=== PATIENT | male | born 1965 | race Caucasian/White ===

== ENCOUNTER 2017-05-14 14:23 | Inpatient (IN) | payer OTHER ==
[~2017-05-14] VITALS: Ht 172.7 cm; Wt 71.2 kg
--- NOTE | ~2017-05-14 | EKG ---
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 : 1965 Requested By: Matilde Dempsey Order Number: [id number] MD: Jerrod Altamirano Measurements Intervals [place] Rate: 84 P: 49 [place]: 144 QRS: 8 QRSD: 100 T: 62 QT: 391 QTc: 463 Interpretive Statements Sinus rhythm No significant abnormality Compared to ECG 09/02/2010 09:24:39 Myocardial infarct finding no longer present Electronically Signed On 05-15-2017 8:40:46 AUTO MACHINIST by Jerrod Altamirano [email or web address] <ELECTRONICALLY SIGNED> By: Jerrod Altamirano MD, [facility] 05/15/17 0840 1423 142 Jerrod Altamirano MD, [facility] /EPI
--- NOTE | ~2017-05-14 | 2DMMODE ---
[facility] [address] [facility] [address] [place] [address] 2 D/M-MODE ECHOCARDIOGRAM Name: YOLANDE DAS Room #: 350-P [facility] IN ..#: [id number] Admission: 05/14/17 Attend Phys: Ric Gleason, Discharge: 05/15/17 Date of : 65 Date of Service: 05/15/17 1556 Report #: [id number] THIS REPORT FOR: //name// APPROVED REPORT Study performed: 05/15/2017 12:29:36 EXAM: Comprehensive 2D, Doppler, and color-flow Echocardiogram Patient Location: Bedside Room #: 350 Status: routine BSA: 1.82 HR: 70 bpm BP: 124/90 mmHg Other Information Study Quality: Adequate Indications CAD Chest Pain Hypertension/HDD 2D Dimensions RVDd: 39.97 mm LVEF(%): 44.99 (>50%) IVSd: 10.43 (7-11mm) LVOT Diam: 21.32 (18-24mm) LVDd: 40.91 mm PWd: 9.66 (7-11mm) Ascending Ao: 32.47 (22-36mm) LVDs: 31.89 (25-40mm) Aortic Root: 28.25 mm IVC: 16.00 mm Bach's LVEF: 44.99 % Volumes Left Atrial Volume (Systole) Single Plane 4CH: 50.69 mL Single Plane 2CH: 48.46 mL LA ESV Index: 30.00 mL/m2 Aortic Valve AoV Peak Angel.: 1.02 m/s AO Peak Gr.: 4.14 mmHg LVOT Max P.21 mmHg LVOT Max V: 0.90 m/s BERNA Vmax: 3.14 cm2 Mitral Valve E/A Ratio: 1.2 [facility] [place] [address] 2 D/M-MODE ECHOCARDIOGRAM Name: YOLANDE DAS Room #: 350-P [facility] IN ..#: [id number] Admission: 05/14/17 Attend Phys: Ric Gleason, Discharge: 05/15/17 Date of : 65 Date of Service: 05/15/17 1556 Report #: [id number] MV Decel. Time: 181.23 ms MV E Max Angel.: 0.65 m/s MV A Angel.: 0.53 m/s MV PHT: 52.56 ms IVRT: 92.27 ms Pulmonary Valve PV Peak Angel.: 0.73 m/s PV Peak Gr.: 2.13 mmHg Pulmonary Vein P Vein S: 0.37 m/s P Vein A: 0.20 m/s P Vein D: 0.28 m/s P Vein A Dur.: 73.8 msec P Vein S/D Ratio: 1.32 Tricuspid Valve TR Peak Angel.: 2.50 m/s TR Peak Gr.: 24.91 mmHg PA Pressure: 30.00 mmHg Left Ventricle The left ventricle is normal size. Regional wall motion is not well visualized but grossly normal. There is normal left ventricular wall thickness. Left ventricular systolic function is normal LVEF 50-55%. The left ventricular diastolic function is normal. Right Ventricle The right ventricle is normal size. The right ventricular systolic function is normal. Atria The left atrium size is normal. The right atrium size is normal. Aortic Valve The aortic valve is normal in structure. No aortic regurgitation is present. There is no aortic valvular stenosis. Mitral Valve The mitral valve is normal in structure. Mild mitral regurgitation. No evidence of mitral valve stenosis. Tricuspid Valve The tricuspid valve is normal in structure. There is trace tricuspid regurgitation. Estimated PAP 30 mmHg. There is no pulmonary hypertension. [facility] [address] [place] [address] 2 D/M-MODE ECHOCARDIOGRAM Name: YOLANDE DAS Room #: 350-P [facility] IN .#: [id number] Admission: 05/14/17 Attend Phys: Ric Gleason, Discharge: 05/15/17 Date of : 65 Date of Service: 05/15/17 1556 Report #: [id number] Pulmonic Valve The pulmonary valve is normal in structure. There is no pulmonic valvular regurgitation. Great Vessels The aortic root is normal in size. IVC is normal in size and collapses >50% with inspiration. Pericardium There is no pericardial effusion. <Conclusion> Left ventricular systolic function is normal LVEF 50-55%. Normal diastolic function The aortic valve is normal in structure. No aortic regurgitation or stenosis The mitral valve is normal in structure. Mild mitral regurgitation. Pulmonary artery pressure of 30mmHg There is no pericardial effusion. <ELECTRONICALLY SIGNED> By: Jerrod Altamirano MD, [facility] 05/15/17 1556 1556 1556 Jerrod Altamirano MD, FACC /INF
[~2017-05-14 14:23] MED LIST: ADULT LOW DOSE81 MG PO; ADVIL200 M1 PO; AMITRIPTYLINE H10 M1 PO; AMITRIPTYLINE PO; ASA5UEC PO; ATIVAN0.5 MG PO; COMBIVENT INH; EFFIENT10 MG OR; FOLIC ACID 1 MG1 MG PO; LEVOTHYROXIN0.075 MG PO; LISINOPRIL; NEURONTIN 300300 M1 PO; NORVASC10 MG PO; OMEPRAZOLE20 M2 PO; OMEPRAZOLE40 MG PO; PLAVIX 75 MG TA75 MG PO; PRAVACHOL40 MG PO; PROPRANOLOL 1010 MG PO; PROTONIX40 M1 PO; TOPROL XL25 MG PO; VICODIN PO; ZOCOR 20 MG TAB20 M1 PO; ZOCOR40 MG PO
[2017-05-14 14:24] VITALS: BP 116/62
[2017-05-14 15:18] LABS: BASOPHILS 0.9 % (0.0-2.0); EOSINOPHILS 1.8 % (0.0-3.0); HEMOGLOBIN 11.4 gm/dL (14.0-18.0); LYMPHOCYTES 21.5 % (24.0-44.0); MANUAL DIFF NO; MCH 32.1 pg (26.0-34.0); MCHC 34.5 g/dL (28.0-37.0); MCV 92.9 fL (80.0-100.0); MONOCYTES 10.3 % (1.0-8.0); PLATELET COUNT 152 thou/uL (150-400); POLYS 65.5 % (36.0-66.0); RBC 3.55 mil/uL (4.50-6.00); RDW 13.4 % (10.5-14.5); WBC 7.6 thou/uL (4.0-11.0)
[2017-05-14] MEDS ORDERED: ASPIR 8181 M1 PO (15:19)
[2017-05-14] MEDS ORDERED: HYDROXYZINE HCL25 M2 PO (15:20)
[2017-05-14] MEDS ORDERED: LIPITOR80 MG PO (15:20)
[2017-05-14] MEDS ORDERED: ROBAXIN 750 MG750 M1 PO (15:20)
[2017-05-14] MEDS ORDERED: TRAZODONE HCL50 MG PO (15:21)
[2017-05-14] MEDS ORDERED: PAXIL10 MG PO (15:21)
[2017-05-14] MEDS ORDERED: REMERON 30 MG T30 MG PO (15:21)
[2017-05-14] MEDS ORDERED: VITAMIN D3400 UNIT PO (15:21)
[2017-05-14] MEDS ORDERED: VITAMIN E400 UNIT PO (15:22)
[2017-05-14 15:26] LABS: ANION GAP 7 mmol/L (7-16); BUN 19 mg/dL (7-18); CALCIUM 8.7 mg/dL (8.5-10.1); CHLORIDE 106 mmol/L (98-107); CO2 28 mmol/L (21-32); GLUCOSE 139 mg/dL (74-106); POTASSIUM 3.9 mmol/L (3.5-5.1); SODIUM 141 mmol/L (136-145)
[2017-05-14 15:34] LABS: ALBUMIN 3.7 g/dL (3.4-5.0); ALKALINE PHOSPHATASE 111 U/L (46-116); SGOT 14 U/L (15-37); SGPT 19 U/L (30-65); TOTAL BILIRUBIN 0.4 mg/dL (<0.1-1.0); TOTAL PROTEIN 6.7 g/dL (6.4-8.2); TROPONIN-I < 0.04 ng/mL (<0.06)
[2017-05-14 17:20] VITALS: BP 133/72
[2017-05-14 17:26] VITALS: BP 133/72
[2017-05-14 17:57] VITALS: BP 123/72
[2017-05-14 18:22] VITALS: BP 122/88
[2017-05-14 18:53] VITALS: BP 129/79
[2017-05-15 03:48] LABS: HEMATOCRIT 35.6 % (42.0-52.0); MCH 31.7 pg (26.0-34.0); MCHC 33.9 g/dL (28.0-37.0); MCV 93.6 fL (80.0-100.0); RBC 3.8 mil/uL (4.50-6.00); RDW 13.4 % (10.5-14.5); WBC 7.1 thou/uL (4.0-11.0)
[2017-05-15 04:00] LABS: ANION GAP 7 mmol/L (7-16); BUN 16 mg/dL (7-18); CALCIUM 8.6 mg/dL (8.5-10.1); CHLORIDE 108 mmol/L (98-107); CO2 27 mmol/L (21-32); CREATININE 1.1 mg/dL (0.7-1.3); GLUCOSE 91 mg/dL (74-106); POTASSIUM 4.3 mmol/L (3.5-5.1); SODIUM 142 mmol/L (136-145); TROPONIN-I < 0.04 ng/mL (<0.06)
[2017-05-15 04:22] VITALS: BP 119/84
[2017-05-15 08:00] VITALS: BP 124/90
[2017-05-15 13:45] VITALS: BP 124/90
== END 2017-05-15 14:00 | disposition home or self-care (01) | DRG 303 ==
LOC: ER 14:23 → 3W 16:18 → EROBS 16:18 → 3W 17:58 → ENTRNSPT 05-15 13:54 → EDTRNSPTSTS 05-15 13:56 → 3W 05-15 14:00
PROVIDERS: Internal Medicine; Nurse Practitioner Family
DX: I25.119 Atherosclerotic heart disease of native coronary artery with unspecified angina pectoris (principal); K21.9 Gastro-esophageal reflux disease without esophagitis; I10 Essential (primary) hypertension; E78.00 Pure hypercholesterolemia, unspecified; E11.9 Type 2 diabetes mellitus without complications; F19.10 Other psychoactive substance abuse, uncomplicated; F17.210 Nicotine dependence, cigarettes, uncomplicated; Z79.82 Long term (current) use of aspirin; I25.2 Old myocardial infarction; Z95.5 Presence of coronary angioplasty implant and graft; Z79.899 Other long term (current) drug therapy; Z89.022 Acquired absence of left finger(s)
CPT/HCPCS: 10779

== ENCOUNTER 2020-07-16 10:52 | Inpatient (IN) | payer OTHER ==
[~2020-07-16] VITALS: Ht 175.3 cm; Wt 71.4 kg
[~2020-07-16 10:52] MED LIST changes: +ASPIR 8181 M1 PO; +HYDROXYZINE HCL25 M2 PO; +LIPITOR80 MG PO; +PAXIL10 MG PO; +REMERON 30 MG T30 MG PO; +ROBAXIN 750 MG750 M1 PO; +TRAZODONE HCL50 MG PO; +VITAMIN D3400 UNIT PO; +VITAMIN E400 UNIT PO
[2020-07-16 10:56] VITALS: BP 129/84
[2020-07-16] MEDS ORDERED: RISPERDAL37.5 MG/2 IM (11:24)
[2020-07-16 11:25] LABS: ABSOLUTE NEUTROPHILS 4.4 thou/uL (1.4-8.2); BASOPHILS 1.2 % (0.0-2.0); EOSINOPHILS 0.7 % (0.0-3.0); HEMOGLOBIN 14.4 gm/dL (14.0-18.0); LYMPHOCYTES 34.9 % (24.0-44.0); MCH 32.9 pg (26.0-34.0); MCHC 33.6 g/dL (28.0-37.0); MCV 97.8 fL (80.0-100.0); MONOCYTES 10.1 % (1.0-8.0); POLYS 53.1 % (36.0-66.0); RBC 4.39 mil/uL (4.50-6.00); RDW 19.2 % (10.5-14.5); WBC 8.4 thou/uL (4.0-11.0)
[2020-07-16 11:28] LABS: CREATININE 0.9 mg/dL (0.7-1.3)
[2020-07-16 11:29] LABS: POTASSIUM 3.8 mmol/L (3.5-5.1)
[2020-07-16 11:36] LABS: TROPONIN-I 0.08 ng/mL (<0.06)
[2020-07-16 13:15] LABS: PLATELET COUNT 191 thou/uL (150-400)
[2020-07-16 13:16] LABS: ANISOCYTOSIS 1+; LARGE PLATELETS RARE
[2020-07-16 15:56] LABS: HEMATOCRIT 38.4 % (42.0-52.0); HEMOGLOBIN 12.9 gm/dL (14.0-18.0); MCHC 33.5 g/dL (28.0-37.0); MCV 98.4 fL (80.0-100.0); RBC 3.9 mil/uL (4.50-6.00); RDW 18.9 % (10.5-14.5)
[2020-07-16 16:10] LABS: PROTIME 10.8 Seconds (9.3-11.4); TROPONIN-I 0.09 ng/mL (<0.06)
[2020-07-16 16:25] LABS: CHOLESTEROL 124 mg/dL (<200); HDL CHOLESTEROL 45 mg/dL (>40); LDL CHOLESTEROL 19 mg/dL (<100); TC:HDL 2.8 Ratio (Not establshd); TRIGLYCERIDE 302 mg/dL (<150); VLDL 60 mg/dL (<40)
[2020-07-16 17:53] LABS: AMP/METHAMP POSITIVE (Negative); BARBITURATES Negative (Negative); BENZODIAZEPINES Negative (Negative); COCAINE Negative (Negative); METHADONE Negative (Negative); OPIATES Negative (Negative); PCP Negative (Negative)
[2020-07-16 19:25] VITALS: BP 161/100
[2020-07-16 21:29] VITALS: BP 160/108
[2020-07-16 22:04] VITALS: BP 153/107
[2020-07-17 00:45] VITALS: BP 159/102
[2020-07-17 04:45] VITALS: BP 145/100
[2020-07-17 08:00] VITALS: BP 144/89
--- NOTE | 2020-07-17 10:20 | EKG ---
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: SAMARA : 1965 Requested By: William Gaspar Order Number: [id number] MD: Aubrey Rodríguez Measurements Intervals [place] Rate: 112 P: 53 [place]: 140 QRS: 16 QRSD: 89 T: 47 QT: 344 QTc: 470 Interpretive Statements Sinus tachycardia Probable left atrial enlargement Anteroseptal infarct, age indeterminate Compared to ECG 05/14/2017 14:23:26 Electronically Signed On 07-17-2020 10:20:49 SHIPWRIGHT HELPER by Aubrey Rodríguez [email or web address] <ELECTRONICALLY SIGNED> By: Aubrey Rodríguez MD 07/17/20 1020 1059 1059 Aubrey Rodríguez MD /AUGUST
--- NOTE | 2020-07-17 10:57 | EKG ---
[address] [place] [address] ELECTROCARDIOGRAM REPORT Name: YOLANDE DAS Room #: 211-P [facility] IN M.R.#: [id number] Admission: 07/16/20 Attend Phys: Rina Howard MD Discharge: Date of : 65 Report #: [id number] [facility] Test Date: 2020-07-17 Test Time: 10:15:39 Pat Name: YOLANDE DAS Department: Room: 211 P Gender: M Chief Cook: : 1965 Requested By: Jerrod Altamirano Order Number: [id number] MD: Aubrey Rodríguez Measurements Intervals [place] Rate: 78 P: 47 GA: 137 QRS: 39 QRSD: 88 T: 68 QT: 434 QTc: 495 Interpretive Statements Sinus rhythm Anteroseptal infarct, age indeterminate Minimal ST elevation, inferior leads Compared to ECG 07/16/2020 10:59:19 ST (T wave) deviation now present Sinus tachycardia no longer present Myocardial infarct finding still present Electronically Signed On 07-17-2020 10:56:58 CONTACT WORKER by Aubrey Rodríguez [email or web address] <ELECTRONICALLY SIGNED> By: Aubrey Rodríguez MD 07/17/20 1056 1015 1015 Aubrey Rodríguez MD /EPI
[2020-07-17 12:00] VITALS: BP 119/75
--- NOTE | 2020-07-17 12:36 | 2DMMODE ---
[facility] [place] [address] 2 D/M-MODE ECHOCARDIOGRAM Name: YOLANDE DAS Room #: 211-P ADM IN .R.#: [id number] Admission: 07/16/20 Attend Phys: Rina Howard MD Discharge: Date of : 65 Report #: [id number] THIS REPORT FOR: cc: FAM - No family physician/PCP FAM - No family physician/PCP Aubrey Rodríguez MD ~ APPROVED REPORT Study performed: 07/17/2020 11:04:40 EXAM: Comprehensive 2D, Doppler, and color-flow Echocardiogram Patient Location: In-Patient Room #: 211 Status: routine BSA: 1.97 HR: 76 bpm Rhythm: NSR Indications CAD 2D Dimensions RVDd: 27.58 mm IVSd: 11.54 (7-11mm) LVOT Diam: 23.83 (18-24mm) LVDd: 39.20 mm PWd: 12.31 (7-11mm) Ascending Ao: 36.73 (22-36mm) LVDs: 25.65 (25-40mm) Left Atrium: 38.29 (27-40mm) Aortic Root: 32.89 mm LV Single Plane 4CH: 31.35 % LV Single Plane 2CH: 46.90 % Volumes Left Atrial Volume (Systole) Single Plane 4CH: 17.81 mL Single Plane 2CH: 22.65 mL Aortic Valve AoV Peak Angel.: 0.91 m/s AO Peak Gr.: 3.31 mmHg AO Mean Gr.: 1.61 mmHg AO V2 Mean: 0.59 m/s AO V2 VTI: 16.42 cm [facility] [address] [place] [address] 2 D/M-MODE ECHOCARDIOGRAM Name: YOLANDE DAS Room #: 211-P [facility] IN ..#: [id number] Admission: 07/16/20 Attend Phys: Sophia Marie Discharge: Date of : 65 Report #: [id number] Mitral Valve E/A Ratio: 0.6 MV Decel. Time: 336.09 ms MV E Max Angel.: 0.38 m/s MV A Angel.: 0.59 m/s MV PHT: 97.47 ms TDI E/Lateral E': 7.60 Lateral E' Angel.: 0.05 m/s Pulmonary Valve PV Peak Angel.: 0.67 m/s PV Peak Gr.: 1.78 mmHg Pulmonary Vein P Vein S: 0.40 m/s P Vein A: 0.22 m/s P Vein D: 0.30 m/s P Vein A Dur.: 134.9 msec P Vein S/D Ratio: 1.33 Left Ventricle The left ventricle is normal size. Mild concentric left ventricular hypertrophy. Left ventricular systolic function is moderately decreased. LVEF is 35-40%. Grade II - pseudonormal filling dynamics. Right Ventricle The right ventricle is normal size. The right ventricular systolic function is normal. Atria The left atrium size is normal. The right atrium size is normal. Aortic Valve The aortic valve is normal in structure. No aortic regurgitation is present. There is no aortic valvular stenosis. Mitral Valve The mitral valve is normal in structure. Trace mitral regurgitation. No evidence of mitral valve stenosis. Tricuspid Valve The tricuspid valve is normal in structure. There is no tricuspid valve regurgitation noted. Pulmonic Valve [facility] [address] [address] 2 D/M-MODE ECHOCARDIOGRAM Name: YOLANDE DAS Room #: 211-P [facility] IN M.R.#: [id number] Admission: 07/16/20 Attend Phys: Sophia Marie Discharge: Date of : 65 Report #: [id number] The pulmonary valve is normal in structure. Trace pulmonic regurgitation. Great Vessels The aortic root is normal in size. IVC is normal in size and collapses >50% with inspiration. Pericardium There is no pericardial effusion. <Conclusion> The left ventricle is normal size. Mild concentric left ventricular hypertrophy. Left ventricular systolic function is moderately decreased. LVEF is 35-40%. Grade II - pseudonormal filling dynamics. The right ventricle is normal size. The aortic valve is normal in structure. The mitral valve is normal in structure. Trace mitral regurgitation. The tricuspid valve is normal in structure. There is no tricuspid valve regurgitation noted. There is no pericardial effusion. <ELECTRONICALLY SIGNED> By: Aubrey Rodríguez MD 07/17/20 1236 1236 1236 Aubrey Rodríguez MD /INF
[2020-07-17 20:00] VITALS: BP 117/66
[2020-07-18 00:05] VITALS: BP 105/59
[2020-07-18 05:26] VITALS: BP 123/85
[2020-07-18 12:32] VITALS: BP 133/61
[2020-07-18 16:07] VITALS: BP 116/71
[2020-07-18 19:45] VITALS: BP 116/68
[2020-07-19] VITALS (16 sets, daily range): BP systolic 115–171; BP diastolic 56–93
[2020-07-19 04:38] LABS: CALCIUM 8.6 mg/dL (8.5-10.1); CREATININE 0.9 mg/dL (0.7-1.3); POTASSIUM 3.8 mmol/L (3.5-5.1)
[2020-07-19 05:02] LABS: ABSOLUTE NEUTROPHILS 3.4 thou/uL (1.4-8.2); BASOPHILS 1.7 % (0.0-2.0); EOSINOPHILS 3.1 % (0.0-3.0); HEMATOCRIT 37.9 % (42.0-52.0); HEMOGLOBIN 12.5 gm/dL (14.0-18.0); LYMPHOCYTES 34.1 % (24.0-44.0); MCH 33.4 pg (26.0-34.0); MCHC 33.1 g/dL (28.0-37.0); MCV 101.1 fL (80.0-100.0); MONOCYTES 8.9 % (1.0-8.0); PLATELET COUNT 167 thou/uL (150-400); POLYS 52.2 % (36.0-66.0); RBC 3.75 mil/uL (4.50-6.00); RDW 18.6 % (10.5-14.5); WBC 6.5 thou/uL (4.0-11.0)
--- NOTE | 2020-07-19 10:25 | CATHLAB ---
[facility] [address] [place] [address] INVASIVE PROCEDURE REPORT Name: YOLANDE DAS Room #: 211-P ADM IN M.R.#: [id number] Admission: 07/16/20 Attend Phys: Rina Howard MD Discharge: Date of : 65 Report #: [id number] THIS REPORT FOR: cc: FAM - No family physician/PCP FAM - No family physician/PCP Jerrod Altamirano MD [facility] ~ APPROVED REPORT Study performed: 07/19/2020 08:07:38 Patient Details Patient Status: In-Patient Room #: The patient is a 55 year-old male Event Personnel Jerrod Altamirano Pedicurist, Lissy Todd RN RN, Sun Robert Monitor, Mely Rivera RT(R)() Scrub Procedures Performed Art Access - R femoral artery* 18293 Initial Mod Sed Same Phys/QHP Gr5y 126944 75317 Mod Sed Same Phys/QHP Ea 362697 Left Heart Cath w/or w/o Coronaries [id number] [facility] Place w/wo Plasty Single CIRC 397396 Hemostasis w/ Mynx Indication Chest pain Procedure Narrative The patient was brought urgently to the Cardiac Catheterization Laboratory and was prepped and draped in a sterile manner. The Right Groin^ was infiltrated with 1% Lidocaine subcutaneous anesthesia. A PINNACLE 6FR Sheath #[id number] sheath was inserted into the RFA^. Coronary angiography was performed using coronary diagnostic catheters. The right coronary system was accessed and visualized with a JR 4 catheter. The left coronary system was accessed and visualized with a JL 4 catheter. The left ventricle was accessed and visualized with a Pigtail catheter. Left ventricular/Aortic Valve gradient assessed via catheter pullback. Left ventriculogram was performed in CROFT projection. Closure device was deployed with a 6 Fr Mynx. The patient tolerated the procedure well and there were no complications associated with the procedure. Intraoperative Conscious Sedation Sedation start time: 08:22 Case end Time: [facility] [address] [place] [address] INVASIVE PROCEDURE REPORT Name: YOLANDE DAS Room #: 211-P [facility] IN ..#: [id number] Admission: 07/16/20 Attend Phys: Sophia Marie Discharge: Date of : 65 Report #: [id number] 09:17 Fentanyl 100 mcg Versed 2 mg Fluoro Time: 10.40 minutes Dose: DAP 79322.00 cGycm2 1774 mGy Contrast Type and Amount: Omnipaque 265 ml Coronary Angiography The patient's coronary anatomy is left dominant. Diagnostic Cath Left Main Normal left main LAD Widely patent proximal LAD stent. Minimal proximal and mid LAD plaquing Distal LAD stent with mild intrastent plaquing Diagonal 1 Large single diagonal branch, angiographically normal Circumflex Dominant circumflex with 90% distal circumflex stenosis before the origin of the posterior descending OM1 Mild OM1 plaquing (20-30%) OM2 Small, normal OM 2 OM3 Normal distally arising OM 3 L PDA Angiographically normal Right Coronary Small, nondominant right coronary with minimal proximal plaquing Left Ventriculography The left ventricle is normal in size with normal contractility. The left ventricular ejection fraction is estimated to be 45-50%. Left ventricular wall motion abnormalities are present. There is no mitral insufficiency. Mild steve-apical hypokinesis Hemodynamics The aortic pressure is 133/66 mmHg with a mean of 96 mmHg. The left ventricular pressure is 131/9 mmHg with a mean of mmHg. The left ventricular end diastolic pressure is 12 mmHg. Pullback from the left ventricle to the aorta revealed no gradient across the aortic valve. PCI Technique Lesion Anticoagulation was achieved with Heparin, Integrilin. Patient was preloaded with Effient. Percutaneous coronary intervention was performed on the distal circumflex artery segment. The lesion stenosis prior to intervention was 95% with JONATHAN 3 flow. A LAUNCHER 6FR EBU 4 #[id number] Guide Catheter was used to engage the left main ostium. A Luge Wire .014 x 182CM #[id number] Interventional Guidewire was [facility] [address] [place] [address] INVASIVE PROCEDURE REPORT Name: YOLANDE DAS Room #: 211-P [facility] IN M.R.#: [id number] Admission: 07/16/20 Attend Phys: Sophia Marie Discharge: Date of : 65 Report #: [id number] used to cross the lesion. BALLOON DILATION A Balloon catheter Euphora RX 2.25 x 12 #[id number] was inserted and inflated up to 8.00atm for 13seconds. Additional Inflation: 14.00atm for 33seconds. STENT DEPLOYMENT A drug-eluting stent RESOLUTE QUINTON RX 2.5 X 12 #[id number] was inserted and inflated up to 12.00atm for 30seconds. POST STENT DEPLOYMENT BALLOON DILATION A Balloon catheter TREK NC RX 2.5 X 8 #[id number] was inserted and inflated up to 12.00atm for 30seconds. Additional Inflation: 14.00atm for 30seconds. Final angiography reveals 0 % stenosis with JONATHAN 3 flow. Conclusion 1. Mild left ventricular dysfunction with anteroapical hypokinesis. EF 45-50% 2. Normal left main 3. Mild LAD plaquing with patent proximal and distal stents 4. Distal circumflex stenosis of 95%, stented with a 2.5 x 12 mm Resolute medicated stent 5. Small non-dominant circumflex Recommendations Smoking Cessation Cardiac Rehabilitation Referral Aggressive Medical Therapy <ELECTRONICALLY SIGNED> By: Jerrod Altamirano MD, [facility] 07/19/20 1025 1025 1025 Jerrod Altamirano MD, FAC /INF
[2020-07-19 15:52] LABS: HEMATOCRIT 35.8 % (42.0-52.0); HEMOGLOBIN 11.9 gm/dL (14.0-18.0); MCH 33.4 pg (26.0-34.0); MCHC 33.2 g/dL (28.0-37.0); MCV 100.7 fL (80.0-100.0); RBC 3.56 mil/uL (4.50-6.00); RDW 19.1 % (10.5-14.5); WBC 7.8 thou/uL (4.0-11.0)
[2020-07-20 03:21] VITALS: BP 130/92
[2020-07-20 05:02] LABS: HEMATOCRIT 38.4 % (42.0-52.0); HEMOGLOBIN 12.8 gm/dL (14.0-18.0); MCH 33.2 pg (26.0-34.0); MCHC 33.3 g/dL (28.0-37.0); MCV 99.8 fL (80.0-100.0); RBC 3.85 mil/uL (4.50-6.00); RDW 18.8 % (10.5-14.5); WBC 8.1 thou/uL (4.0-11.0)
[2020-07-20 05:43] LABS: ALBUMIN 3.1 g/dL (3.4-5.0); CALCIUM 8.8 mg/dL (8.5-10.1); POTASSIUM 3.7 mmol/L (3.5-5.1); TOTAL BILIRUBIN 0.5 mg/dL (0.2-1.0); TOTAL PROTEIN 6.8 g/dL (6.4-8.2); TROPONIN-I 0.11 ng/mL (<0.06)
--- NOTE | 2020-07-20 07:02 | EKG ---
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: JESSE : 1965 Requested By: Jerrod Altamirano Order Number: [id number] : Chavo Howard Measurements Intervals [employer] Rate: 67 P: 26 [place]: 147 QRS: 3 QRSD: 92 T: 52 QT: 433 QTc: 457 Interpretive Statements Sinus rhythm Probable anteroseptal infarct, old Compared to ECG 07/17/2020 10:15:39 ST (T wave) deviation no longer present Myocardial infarct finding still present Electronically Signed On 07-20-2020 7:02:37 FAST FOOD COOK by Chavo Howard [email or web address] <ELECTRONICALLY SIGNED> By: Chavo Howard MD, [facility] 07/20/20701 Chavo Howard MD, FAC /EPI
[2020-07-20 07:15] VITALS: BP 127/90
[2020-07-20 07:20] VITALS: BP 138/74
--- NOTE | 2020-07-20 07:42 | EKG ---
[address] [employer] [place] [address] ELECTROCARDIOGRAM REPORT Name: YOLANDE DAS Room #: 211-[facility] IN M.R.#: [id number] Admission: 07/16/20 Attend Phys: Rina Howard MD Discharge: Date of : 65 Report #: [id number] [facility] Test Date: 2020-07-20 Test Time: 07:13:33 Pat Name: YOLANDE DAS Department: Room: 211 P Gender: M Tubular Riveter: JESSE : 1965 Requested By: Jerrod Altamirano Order Number: [id number] MD: Jerrod Altamirano Measurements Intervals [place] Rate: 86 P: 64 CT: 144 QRS: 9 QRSD: 89 T: 63 QT: 392 QTc: 469 Interpretive Statements Sinus rhythm Poor R wave progression Compared to ECG 07/19/2020 09:57:01 No significant changes Electronically Signed On 07-20-2020 7:42:07 SENIOR QUALITY MANAGER by Jerrod Altamirano [email or web address] <ELECTRONICALLY SIGNED> By: Jerrod Altamirano MD, [facility] 07/20/20 0742 2 Jerrod Altamirano MD, FACC /EPI
[2020-07-20] MEDS ORDERED: LOPRESSOR50 PO (08:36)
[2020-07-20] MEDS ORDERED: LISINOPRIL10 MG PO (08:36)
[2020-07-20] MEDS ORDERED: EFFIENT10 MG PO (08:36)
[2020-07-20] MEDS ORDERED: ASPIRIN325 PO (08:36)
[2020-07-20 09:33] VITALS: BP 127/90
== END 2020-07-20 12:07 | disposition left against medical advice (07) | DRG 246 ==
LOC: ER 10:52 → EROBS 15:13 → 2N 15:13
PROVIDERS: Internal Medicine; Internal Medicine Cardiovascular Disease; Nurse Practitioner; ADMIT Hospitalist; ATTEND Hospitalist
PROC: 027034Z Dilation of Coronary Artery, One Artery with Drug-eluting Intraluminal Device, Percutaneous Approach (ICD-10-PCS; principal; 2020-07-19)
PROC: 4A023N7 Measurement of Cardiac Sampling and Pressure, Left Heart, Percutaneous Approach (ICD-10-PCS; principal; 2020-07-19)
PROC: B2111ZZ Fluoroscopy of Multiple Coronary Arteries using Low Osmolar Contrast (ICD-10-PCS; principal; 2020-07-19)
PROC: B2151ZZ Fluoroscopy of Left Heart using Low Osmolar Contrast (ICD-10-PCS; principal; 2020-07-19)
DX: I21.4 Non-ST elevation (NSTEMI) myocardial infarction (principal); I50.21 Acute systolic (congestive) heart failure; E44.1 Mild protein-calorie malnutrition; R65.10 Systemic inflammatory response syndrome (SIRS) of non-infectious origin without acute organ dysfunction; I42.9 Cardiomyopathy, unspecified; I25.110 Atherosclerotic heart disease of native coronary artery with unstable angina pectoris; E11.42 Type 2 diabetes mellitus with diabetic polyneuropathy; F19.10 Other psychoactive substance abuse, uncomplicated; F10.11 Alcohol abuse, in remission; E78.5 Hyperlipidemia, unspecified; F15.11 Other stimulant abuse, in remission; I10 Essential (primary) hypertension; F17.210 Nicotine dependence, cigarettes, uncomplicated; E03.9 Hypothyroidism, unspecified; K21.9 Gastro-esophageal reflux disease without esophagitis; Z20.822 Contact with and (suspected) exposure to COVID-19; Z53.21 Procedure and treatment not carried out due to patient leaving prior to being seen by health care provider; I25.2 Old myocardial infarction; Z95.5 Presence of coronary angioplasty implant and graft; Z79.899 Other long term (current) drug therapy; Z79.82 Long term (current) use of aspirin; Z68.23 Body mass index [BMI] 23.0-23.9, adult; Z91.040 Latex allergy status
CPT/HCPCS: 10081